=== PATIENT | female | born 1990 | race Caucasian/White ===

== ENCOUNTER 2023-05-01 16:54 | Emergency (ER) | payer OTHER, MEDICAID, SELFPAY ==
[2023-05-01 17:01] VITALS: BP 125/55; PULSE 104; RESP 26; TEMP 36.7; O2SAT 97
--- NOTE | 2023-05-01 17:03 | ED_ITS ---
HPI - Allergic Reaction General Chief complaint: Allergic Reaction Stated complaint: ALLERGIC RXN TO BEE STING +EPI PEN DIFF BREATHING Source: patient and EMS Mode of arrival: EMS Limitations: no limitations History of Present Illness HPI narrative: Patient comes to the emergency room complaining of an allergic reaction to a bee sting. Patient states that when she got stung, patient started having diffuse hives head to toe, intense itching, shortness of breath, foreign body sensation in his throat feeling that her throat was swelling and closing. EMS was called, gave her 1 IM injection of epinephrine. Patient states that her throat is feeling better. However, she still has diffuse hives and itching. EMS did not give any other medications. Related Data Previous Rx's Medication Instructions Recorded epinephrine 0.3 mg/0.3 mL 0.3 mg (0.3 mL) IM Q4H PRN 05/01/23 injection, auto-injector (EpiPen) anaphylaxis #2 ea Allergies Allergy/AdvReac Type Severity Reaction Status Date / Time shrimp Allergy Unknown [email or web address] Unverified 05/13/20 16:08 Review of Systems Review of Systems: Constitutional : No Weight loss, No Fever, No Chills, No Night Sweats, No Fatigue, No Malaise ENT/Mouth : No Hearing loss, No Ear Pain, No Nasal Congestion, No Sinus Pain, No Hoarseness, complaining of itchy and swelling sensation in the throat, no sore throat, No Rhinorrhea, No Swallowing Difficulty Eyes: No Eye Pain, No Swelling, No Redness, No Foreign Body, No Discharge, No Vision Changes Cardiovascular : No Chest Pain, No SOB, No Dyspnea on Exertion, No Orthopnea, No Edema, No Palpitations Respiratory : No Cough, No Sputum, No Wheezing, No Smoke Exposure, No Dyspnea Gastrointestinal : No Nausea, No Vomiting, No Diarrhea, No Constipation, No abdominal Pain, No Hematochezia, No Melena Genitourinary : no irregular bleeding, No Dysuria, No Urinary Frequency, No Hematuria, No Urinary Incontinence, No Urgency, No Flank Pain, No Urinary Flow Changes, No Hesitancy Musculoskeletal : No joint pain, No Myalgias, No Joint Swelling Skin : Diffuse erythema and itching and hives Neuro : No Weakness, No Numbness, No Paresthesias, No Loss of Consciousness, No Dizziness, No Headache Psych : No Anxiety/Panic, No Depression, No SI/HI/AH/VH, No Social Issues, Heme/Lymph: No Bruising, No Bleeding,No Lymphadenopathy Endocrine : No Polyuria, No Polydipsia, No Temperature Intolerance [facility] Social History Social History Alcohol intake: never Smoked in Last 30 Days: Yes Use of substances other than those prescribed or required for medical reasons: Yes Substance Use Type: Marijuana Advance Directives: No Advance Directives Information Provided: No Patient : No Physical Exam ED Vital Signs: Vital Signs - 24 hr 05/01/23 17:01 05/01/23 19:24 Temperature 98.0 F 98.1 F Pulse Rate 104 H 83 Respiratory Rate 26 H 16 Blood Pressure 125/55 L 125/68 Pulse Oximetry 97 98 Oxygen Delivery Method Room Air Room Air BMI result Body Mass Index 30.4 Const Other: Appearance: Alert. Oriented X3. Uncomfortable, itching Eyes: Pupils equal, round and reactive to light. ENT: Pharynx normal. No angioedema, normal tongue, lips, normal Neck: Normal inspection. Neck supple. No lymph nodes noted. No crepitus CVS: Normal heart rate and rhythm. Pulses normal. Normal S1 and S2 Respiratory: No respiratory distress. Breath sounds normal. No Wheezing. No ral es Abdomen: Soft and nontender. No rigidity. No distention. Skin: Skin diffusely erythematous with hives Extremities: No lower extremity edema. No Lacerations. No Rash Neuro: Oriented X 3. No motor deficit. No sensory deficit. Moving all extremities. No slurred speech. CN 2 through 12 grossly intact Psych: calm, cooperative, normal affect Course Course Course Narrative: -patient already received a dose of epinephrine by EMS -in the emergency room patient receiving IV fluids, Solu-Medrol, Pepcid, Benadryl. -patient's vital stable Medications Administered Discontinued Medications Generic Name Dose Route Start Last Admin Trade Name Freq PRN Reason Stop Dose Admin Diphenhydramine HCl 50 mg 05/01/23 17:02 05/01/23 17:04 Diphenhydramine Hcl 50 Mg/Ml Vial IVPUSH 05/01/23 17:03 50 mg ONCE ONE Administration Famotidine 20 mg 05/01/23 17:02 05/01/23 17:04 Famotidine/Pf 20 Mg/2 Ml Vial IVPUSH 05/01/23 17:03 20 mg ONCE ONE Administration Sodium Chloride 1,000 mls @ 999 mls/hr 05/01/23 17:02 05/01/23 18:22 Ns IVCONT 05/01/23 18:02 Infused .Q1H1M ONE Infusion Methylprednisolone Sodium Succinate 125 mg 05/01/23 17:02 05/01/23 17:04 Methylprednisolone Sod Succ 125 Mg/2 Ml Vial IVPUSH 05/01/23 17:03 125 mg ONCE ONE Administration Medical Decision Making Medical Decision Making MDM Narrative: -after the IV treatment, patient feeling much better, although has reserved. Patient has no longer hives, no oropharyngeal edema. I discussed with the patient that epinephrine pen has been sent to the patient's pharmacy. Discussed with the patient how to use it but also she was instructed to ask her pharmacist to show her how to use EpiPen. Differential Diagnosis Differential Diagnoses: The differential diagnosis associated with the presentation includes (Anaphylaxis, allergic reaction, hypersensitivity reaction) Admission/Observation Consideration of admission/observation: Escalation of care including admission/observation considered (Patient came in complaining with severe allergic reaction, epinephrine was needed, admission was consider.) Critical Care Time Critical Care Time Critical Care Time: Yes Total Critical Care Time: 60 Attestation: I have personally provided critical care time. Time includes review of lab data, radiology results, discussion with consultants, and monitoring for potential decompensation. Intervention performed as documented. Discharge Plan Discharge Clinical Impression: Allergic reaction Patient Disposition: Home, Self-Care Instructions: Anaphylaxis (ED) Additional Instructions: Please follow-up with your primary care physician tomorrow. If you have any worsening or new symptoms, please return to the emergency room or call 911 Prescriptions: New epinephrine [EpiPen] 0.3 mg/0.3 mL auto-injector 0.3 mg IM Q4H PRN (Reason: anaphylaxis) Qty: 2 0RF
[2023-05-01] MEDS: Famotidine/PF 20 MG/2 ML VIAL IVPUSH (17:04)
[2023-05-01] MEDS: 0.9 % Sodium Chloride 1,000 ML 999 ML IVCONT (17:04)
[2023-05-01] MEDS: methylPREDNISolone Sod Succ 125 MG/2 ML VIAL IVPUSH (17:04)
[2023-05-01] MEDS: diphenhydrAMINE HCL 50 MG/ML VIAL IVPUSH (17:04)
[2023-05-01 17:09] VITALS: BP 130/80; PULSE 120; O2SAT 98; BMI 30.4
--- NOTE | 2023-05-01 17:11 | PC.NURSE ---
Patient arrived from home after bee sting to right arm. Upon ems arrival at home patient stated throat was closing and she received x 1 dose of epi with good effect. Lips and eye swollen, rash on arms , legs, and groin area. Medicated per oct. 97% on RA. no sob , denies difficulty breathing
[2023-05-01 19:24] VITALS: BP 125/68; PULSE 83; RESP 16; TEMP 36.7; O2SAT 98
== END 2023-05-01 19:52 | disposition home or self-care (01) ==
PROVIDERS: Emergency Provider Emergency Medicine
DX: L50.0 Allergic urticaria (principal); J02.9 Acute pharyngitis, unspecified
CPT/HCPCS: 96361; 96374; 96375; 99284; J1200; J2930